=== PATIENT | female | born 1955 | race Caucasian/White ===

== ENCOUNTER 2016-12-15 13:42 | Emergency (ER) | payer OTHER ==
[~2016-12-15 13:42] MED LIST: ATEN50 PO; BEN25 PO; BUM1 PO; BYSTOLIC10 MG PO; DULCOLAX; ESTRACE1 MG PO; HALCION0.25 MG PO; HYDROCHLOROT25 MG PO; KLONO1 PO; LEVOTHYROXIN50 MCG PO; LIDODERM T; LIPITOR20 PO; MACRODANTIN 10100 MG PO; MIRALAXPKT PO; MUCINEX D1 TA1 OR; NASONEX NAS; NORCO1 TA1 PO; OXYCODONE PO; PERCOCET1 TA5 PO; POT GLUCONAT595 M1 OR; PR25 PO; PRILO PO; PRILOSEC40 MG PO; PROVIGIL2 PO; SAVELLA100 MG PO; SUCR PO; TORATAB PO; VESICARE PO; VESICARE10 MG PO; VITAMIN C100 MG PO; VITAMIN D31000 UNIT PO; ZYRTEC ALLGY10 MG PO
[2016-12-15 18:15] LABS: BASOPHILS 0.4 %; BASOPHILS ABSOLUTE 0.02 10/3/uL (0.0-0.16); EOSINOPHILS 1.3 %; EOSINOPHILS ABSOLUTE 0.07 10/3/uL (0.0-0.53); ER CBC TAT 0 Hrs 09 Mins; HEMATOCRIT 36.6 % (36.0-48.0); HEMOGLOBIN 12.3 g/dL (12.0-16.0); IMMATURE GRANULOCYTES 0.2 %; IMMATURE GRANULOCYTES ABSOLUTE 0.01 10/3/uL (0.0-0.11); LYMPHOCYTES 27.8 %; LYMPHOCYTES ABSOLUTE 1.45 10/3/uL (0.67-4.30); MEAN CORPUS HGB CONC 33.6 g/dL (32.0-36.0); MEAN CORPUSCULAR HEMOGLOB 30.3 pg (26.0-34.0); MEAN CORPUSCULAR VOLUME 90.1 fL (80-100); MEAN PLATELET VOLUME 9.6 fL (9.2-13.0); MONOCYTES 5.2 %; MONOCYTES ABSOLUTE 0.27 10/3/uL (0.21-1.20); NEUTROPHILS 65.1 %; NEUTROPHILS ABSOLUTE 3.39 10/3/uL (2.02-8.40); PLATELET COUNT 279 10/3/uL (150-400); RBC DISTRIBUTION WIDTH 12.7 % (12.0-16.0); RED CELL COUNT 4.06 10/6/uL (4.0-5.6); WHITE BLOOD CELLS 5.2 10/3/uL (4.5-10.5)
[2016-12-15 18:19] LABS: ASCORBIC ACID (UR NOT ORDER) NEG (NEG); BILIRUBIN, URINE NEGATIVE (NEG); ER URINALYSIS TAT 0 Hrs 14 Mins; KETONE, URINE NEGATIVE (NEG); LEUKOCYTE ESTERASE(NOT OR NEG (NEG); NITRITE (URINE) NEG (NEG); WBC (NOT ORDERED) (RFLEX) < 1 (0-5)
[2016-12-15 18:21] LABS: MANUAL DIFF NO %
[2016-12-15 18:31] LABS: A/G RATIO 0.9 (0.7-1.9); ALBUMIN 3.4 G/DL (3.5-5.0); ALKALINE PHOSPHATASE 100 U/L (45-117); BUN (BLOOD UREA NITROGEN) 12 MG/DL (6-23); CALCIUM, SERUM 9.1 MG/DL (8.5-10.4); CHLORIDE, SERUM 107 MMOL/L (96-112); CO2 (CARBON DIOXIDE) 31 MMOL/L (24-34); CREATININE 0.65 MG/DL (0.55-1.02); GFR AFRICAN AMERICAN 111 ML/MIN (>=60); GFR NON AFRICAN AMERICAN 96 ML/MIN (>=60); GLOBULIN 3.6 G/DL (2.5-4.1); GLUCOSE, SERUM 82 MG/DL (60-99); SGOT(AST) 7 U/L (5-40); SGPT(ALT) 12 U/L (5-65); SODIUM, SERUM 144 MMOL/L (135-148); TOTAL BILIRUBIN 0.3 MG/DL (0-1.2)
[2016-12-15 18:34] LABS: POTASSIUM, SERUM 4.1 MMOL/L (3.5-5.3)
[2017-03-09] MEDS ORDERED: HYDROCHLOROT25 MG PO (14:54)
[2017-03-09] MEDS ORDERED: PROVIGIL2 PO (14:56)
[2017-03-09] MEDS ORDERED: LYRICA200 MG PO (14:58)
[2017-03-09] MEDS ORDERED: AMIT100 PO (14:58)
[2017-03-09] MEDS ORDERED: MIRALAX POWDER1 PKT PO (14:59)
[2017-03-09] MEDS ORDERED: PAIN TOP (15:02)
[2017-03-09] MEDS ORDERED: LIDODERM TOP (15:03)
[2017-03-09] MEDS ORDERED: SUPPOSITORY (15:03)
[2017-03-10] MEDS ORDERED: MEDS (15:58)
[2017-03-31] MEDS ORDERED: VITAMIN D31000 UNIT PO (08:52)
[2017-03-31] MEDS ORDERED: POTASSIUM (08:52)
== END 2016-12-15 23:33 | disposition home or self-care (01) ==
LOC: ER 13:42
PROVIDERS: Emergency Medicine
DX: N82.8 Other female genital tract fistulae (principal); Z88.0 Allergy status to penicillin; Z91.041 Radiographic dye allergy status; Z79.899 Other long term (current) drug therapy
CPT/HCPCS: 74177; 80053; 81001; 83690; 85025; 96374; 96375; 96376; 99284; J1170; J2405; Q9967